=== PATIENT | female | born 1995 | race Caucasian/White ===

== ENCOUNTER 2019-08-29 04:35 | Emergency (ER) | payer MEDICAID ==
[~2019-08-29] VITALS: Ht 160 cm; Wt 60.1 kg
[2019-08-29 04:37] VITALS: BP 89/61
[2019-08-29] MEDS ORDERED: CLINDAMYCIN 300 MG CAPSULE PO ONE (05:00)
[2019-08-29] MEDS ORDERED: IBUPROFEN 600 MG TABLET PO ONE (05:00)
[2019-08-29] MEDS ORDERED: OXYcodone/APAP 5/325MG TABLET PO ONE (05:00)
[2019-08-29] MEDS ORDERED: CLINDAMYCIN 300 MG CAPSULE ONE (05:05)
[2019-08-29] MEDS ORDERED: IBUPROFEN 600 MG TABLET ONE (05:06)
[2019-08-29] MEDS ORDERED: OXYcodone/APAP 5/325MG TABLET ONE (05:06)
== END 2019-08-29 05:14 | disposition home or self-care (01) ==
LOC: ED 05:00
DX: K04.7 Periapical abscess without sinus (principal)
CPT/HCPCS: 99284